=== PATIENT | female | born 1945 | race Hispanic/Latino ===

== ENCOUNTER 2016-11-24 08:44 | Inpatient (IN) | payer MEDICARE, OTHER ==
[2016-11-24] MEDS ORDERED: cefTRIAXone 1 gm 1 GM/100 ML BAG IV STA (10:26)
[2016-11-24] MEDS ORDERED: Azithromycin 500MG/NS 250ml 500 MG/250 ML BAG IVPB STA (10:26)
--- NOTE | 2016-11-24 10:26 | ED PDOC ---
Arrival/HPI - General Chief Complaint: Cough, Cold, Congestion Time Seen by Provider: 11/24/16 10:25 Historian: Patient - History of Present Illness Narrative History of Present Illness (Text): 11/24/16 10:26 A 71 year old female presents to the emergency department complaining of a worsening productive cough with yellow phlegm for 1 week. Patient reports she was seen in urgent care and prescribed clarithromycin. Patient states she started the medication 5 days ago with no relief of symptoms. Patient denies any fever, chills, nausea, vomiting, abdominal pain, urinary symptoms, chest pain, shortness of breath or any other complaints. PMD: Dr. Bailey Time/Duration: 1 week Symptom Course: Unchanged Quality: Other Context: Other Past Medical History - Provider Review Nursing Documentation Reviewed: Yes - Infectious Disease Hx of Infectious Diseases: None - Reproductive Menopause: Yes - Musculoskeletal/Rheumatological Hx Falls: No - Psychiatric Hx Depression: No Hx Emotional Abuse: No Hx Physical Abuse: No Hx Substance Use: No - Anesthesia Hx Anesthesia: Yes - Suicidal Assessment Feels Threatened In Home Enviroment: No Family/Social History - Physician Review Nursing Documentation Reviewed: Yes Family/Social History: No Known Family HX Smoking Status: Never Smoked Hx Alcohol Use: No Hx Substance Use: No Hx Substance Use Treatment: No Allergies/Home Meds Allergies/Adverse Reactions: Allergies Penicillins Allergy (Verified 11/24/16 09:02) RASH Physical Exam - Physical Exam Narrative Physical Exam (Text): - Review of Systems Constitutional: Normal. absent: Fatigue, Weight Change, Fevers Eyes: Normal ENT: Normal Respiratory: (+) Cough, Sputum absent: SOB Cardiovascular: Normal absent: Chest pain, Palpitations, Syncope Gastrointestinal: Normal absent: Abdominal pain, Diarrhea, Nausea, Vomiting Genitourinary: Normal. absent: Dysuria, Frequency, Hematuria Musculoskeletal: Normal. absent: Arthralgias, Back Pain, Neck Pain Skin: Normal Neurological: Normal absent: Focal Weakness Endocrine: Normal Hemo/Lymphatic: Normal Psychiatric: Normal - Physical exam Patient appears age appropriate, speaking full sentences without difficulty - Systems Exam Head: Present: Atraumatic, Normocephalic Pupils: Present: PERRL Extraocular Muscles: Present: EOMI Conjunctiva: Present: Normal Mouth: Present: Moist Mucous Membranes Neck: Present: Normal Range of Motion. No: MIDLINE TENDERNESS, Paraspinal Tenderness Respiratory/Chest: Present: Scattered Rhonchi in left lung field No: Respiratory Distress, Accessory Muscle Use, Tachypneic Cardiovascular: Present: Tachycardia, Normal rhythm, Normal S1, S2, Peripheral Pulses Present. No: Murmurs Abdomen: Present: Normal Bowel Sounds, No: Tenderness, Peritoneal Signs, Rebound, Guarding, Distention Back: Present: Normal Inspection. No: Midline Tenderness, Paraspinal Tenderness Upper Extremity: Present: Normal Inspection. No: Cyanosis, Edema Lower Extremity: Present: Normal Inspection. No: Edema Neurological: Present: GCS=15, Speech Normal, cranial nerves II through XII fully intact with no cerebellar abnormality, neuro-sensory fully intact. No focal neurological deficits. Skin: Present: Warm, Dry, Normal Color. No: Rashes Lymphatic: Present: OX3, NI, NC Psychiatric: Present: Alert, Oriented x 3, Normal Insight, Normal Concentration Vital Signs Reviewed: Yes Vital Signs Temp Pulse Resp BP Pulse Ox 11/24/16 13:50 98.4 F 11/24/16 13:47 104 H 17 132/82 98 11/24/16 13:25 79 18 156/79 H 98 11/24/16 10:45 99.4 F 11/24/16 08:56 99.3 F 102 H 20 162/82 H 96 Temperature: Afebrile Blood Pressure: Hypertensive Pulse: Tachycardic Respiratory Rate: Normal Appearance: Positive for: Well-Appearing, Non-Toxic, Comfortable Pain Distress: None Mental Status: Positive for: Alert and Oriented X 3 Finger Stick Blood Glucose: 141 Medical Decision Making ED Course and Treatment: 11/24/16 10:26 Impression: A 71 year old female with a productive cough with yellow phlegm. Tachycardia and scattered rhonchi in left lung on exam. Differential Diagnosis included but are not limited to: PNA vs. Bronchitis Plan: -- Chest xray -- EKG -- Labs -- Blood culture -- Rocephin and Azithromycin -- Reassess and disposition Progress Notes: EKG shows sinus tachycardia at [address]-segment elevations, normal intervals. Interpreted by me. Report Date : 11/24/2016 11:05:53 Procedure: Chest xray Dictator : Jose Neri MD IMPRESSION: Left lower lobe infiltrate. Likely pneumonia. 11/24/16 11:42 CXR shows no cardiomegaly, no effusion. L. base infiltrate. Interpreted by me. dw Dr. Bailey, accepted to his service for dx of PNA. pt aware of and agrees with plan - Lab Interpretations Microbiology Results: Microbiology Results 11/24/16 10:35 Blood-Venous Blood Culture - Preliminary NO GROWTH AFTER 4 DAYS 11/24/16 10:00 Blood-Venous Blood Culture - Preliminary NO GROWTH AFTER 4 DAYS Lab Results: 11/24/16 10:35 11/24/16 10:35 Lab Results 11/24/16 10:35: Sodium 138, Chloride 97 L, Potassium 3.4 L, Carbon Dioxide 29, Anion Gap 15, BUN 9, Creatinine 0.6, Est GFR ( Amer) > 60, Est GFR (Non- Af Amer) > 60, Random Glucose 251 H, Calcium 9.6, Total Bilirubin 0.9, AST 40 H , ALT 46, Alkaline Phosphatase 96, Total Protein 8.3, Albumin 3.9, Globulin 4.4 , Albumin/Globulin Ratio 0.9 L 11/24/16 10:35: pO2 36, VBG pH 7.41, VBG pCO2 47.0, VBG HCO3 29.8 H, VBG Total CO2 31.2 H, VBG O2 Sat (Calc) 77.4 H, VBG Base Excess 4.3 H, VBG Potassium 3.5 L , Sodium 137.0, Chloride 102.0, Glucose 263 H, Lactate 1.3, FiO2 21.0, Venous Blood Potassium 3.5 L 11/24/16 10:35: PT 11.2, INR 1.04, APTT 33.3 H 11/24/16 10:35: WBC 9.6, RBC 3.93, Hgb 12.4, Hct 36.5, MCV 92.9, MCH 31.6, MCHC 34.0, RDW 12.7, Plt Count 220, MPV 9.2, Gran % 86.1 H, Lymph % (Auto) 6.7 L, Wharton % (Auto) 6.9 H, Eos % (Auto) 0.1 L, Baso % (Auto) 0.2, Gran # 8.27 H, Lymph # 0.6 L, Wharton # 0.7 H, Eos # 0.0, Baso # 0.02 I have reviewed the lab results: Yes - RAD Interpretation Radiology Orders: 11/24/16 10:27 CHEST PORTABLE [RAD] Stat - Medication Orders Current Medication Orders: Discontinued Medications Acetaminophen (Tylenol 325mg Tab) 650 mg PO Q6H PRN PRN Reason: Fever >100.5 F Last Admin: 11/24/16 15:48 Dose: 650 mg Re-Assess: MAR Pain/Vitals Document 11/24/16 16:48 EP (Rec: 11/24/16 19:05 EP [facility]-[id number]) Vitals Temperature (97.6 F-99.6 F) 98 F Temperature Source Oral Albuterol/Ipratropium (Duoneb 3 Mg/0.5 Mg (3 Ml) Ud) 3 ml IH Q4H PRN PRN Reason: Shortness of Breath Last Admin: 11/26/16 21:06 Dose: 3 ml Alprazolam (Xanax) 0.25 mg PO STAT STA PRN Reason: Protocol Stop: 11/26/16 01:01 Last Admin: 11/26/16 01:07 Dose: 0.25 mg Re-Assess: Reassess Psych Meds Document 11/26/16 02:07 BN (Rec: 11/26/16 02:26 [facility] Reassess Psych Med Effective Alprazolam (Xanax) 0.25 mg PO TID PRN; Protocol PRN Reason: Anxiety Stop: 12/03/16 18:01 Azithromycin (Zithromax) 500 mg PO DAILY GIDEON PRN Reason: Protocol Stop: 11/29/16 10:00 Last Admin: 11/27/16 09:50 Dose: 500 mg Ceftriaxone Sodium (Rocephin 1 Gram Ivpb) 1 gm in 100 mls @ 200 mls/hr IV STAT STA PRN Reason: Protocol Stop: 11/24/16 10:55 Last Admin: 11/24/16 10:55 Dose: 200 mls/hr Azithromycin (Zithromax 500mg In Ns) 500 mg in 250 mls @ 167 mls/hr IVPB STAT STA PRN Reason: Protocol Stop: 11/24/16 11:55 Last Admin: 11/24/16 12:04 Dose: 167 mls/hr Ceftriaxone Sodium (Rocephin 1 Gram Ivpb) 1 gm in 100 mls @ 100 mls/hr IVPB DAILY GIDEON PRN Reason: Protocol Stop: 12/04/16 10:01 Last Admin: 11/26/16 10:14 Dose: 100 mls/hr Azithromycin (Zithromax 500mg In Ns) 500 mg in 250 mls @ 167 mls/hr IVPB DAILY GIDEON PRN Reason: Protocol Stop: 12/04/16 10:01 Last Admin: 11/26/16 10:14 Dose: 167 mls/hr Levalbuterol HCl (Xopenex) 0.63 mg IH ONCE STA Stop: 11/26/16 01:03 Last Admin: 11/26/16 04:37 Dose: 0.63 mg Levalbuterol HCl (Xopenex) 0.63 mg IH TIDRESP GIDEON Oseltamivir Phosphate (Tamiflu Cap) 75 mg PO BID GIDEON PRN Reason: Protocol Stop: 11/29/16 23:21 Last Admin: 11/26/16 10:00 Dose: Not Given Non-Admin Reason: Patient Refused Pneumococcal Polyvalent Vaccine (Pneumovax 23 Vaccine) 0.5 ml IM .ONCE ONE Stop: 11/24/16 20:23 Potassium Chloride (K-Dur 20 Meq Er Tab) 40 meq PO ONCE ONE Stop: 11/24/16 15:57 Last Admin: 11/24/16 16:26 Dose: 40 meq Promethazine HCl (Phenergan Syrup) 6.25 mg PO Q4H PRN PRN Reason: Cough Last Admin: 11/27/16 08:02 Dose: 6.25 mg - Scribe Statement The provider has reviewed the documentation as recorded by the Salvatore Pacheco Provider Scribe Attestation: All medical record entries made by the Salvatore were at my direction and personally dictated by me. I have reviewed the chart and agree that the record accurately reflects my personal performance of the history, physical exam, medical decision making, and the department course for this patient. I have also personally directed, reviewed, and agree with the discharge instructions and disposition. Disposition/Present on Arrival - Present on Arrival Any Indicators Present on Arrival: No History of DVT/PE: No History of Uncontrolled Diabetes: No Urinary Catheter: No History of Decub. Ulcer: No History Surgical Site Infection Following: None - Disposition Have Diagnosis and Disposition been Completed?: Yes Diagnosis: Pneumonia Disposition: HOSPITALIZED Disposition Time: 11:43 Patient Plan: Admission Condition: GOOD
[2016-11-24 10:54] LABS: ADD MANUAL DIFF? NO
[2016-11-24 11:00] LABS: VENOUS BLOOD GAS BASE EXCESS 4.3 mmol/L (0.0-2.0); VENOUS BLOOD PH 7.41 (7.32-7.43)
[2016-11-24 11:07] LABS: BASO # 0.02 K/mm3 (0.0-2.0); BASO % 0.2 % (0.0-3.0); EOS % 0.1 % (1.5-5.0); GRAN # 8.27 (1.4-6.5); GRAN % 86.1 % (50.0-68.0); HEMATOCRIT 36.5 % (36.0-48.0); LYMPH # 0.6 (1.2-3.4); LYMPH % 6.7 % (22.0-35.0); MEAN CELL VOLUME 92.9 fL (80.0-105.0); MEAN CORPUSCULAR HEMOGLOBIN 31.6 pg (25.0-35.0); MEAN PLATELET VOLUME 9.2 fl (7.0-11.0); MONO # 0.7 (0.1-0.6); MONO % 6.9 % (1.0-6.0); PLATELET COUNT 220 10^3/uL (120.0-450.0); RED CELL DISTRIBUTION WIDTH 12.7 % (11.5-14.5); WHITE BLOOD COUNT 9.6 10^3/ul (4.5-11.0)
--- NOTE | 2016-11-24 11:07 | RAD ---
HISTORY: cough COMPARISON: No prior. FINDINGS: LUNGS: Ill-defined opacity at left base without silhouetting of left heart border, likely lower lobe. Probable pneumonia. . PLEURA: No significant pleural effusion identified, no pneumothorax apparent. CARDIOVASCULAR: Normal. OSSEOUS STRUCTURES: No significant abnormalities. VISUALIZED UPPER ABDOMEN: Normal. OTHER FINDINGS: None. IMPRESSION: Left lower lobe infiltrate. Likely pneumonia.
[2016-11-24 11:11] LABS: ALB/GLOB RATIO 0.9 (1.1-1.8); ALKALINE PHOSPHATASE 96 U/L (38-133); ALT/SGPT 46 U/L (7-56); AST/SGOT 40 U/L (15-39); BILIRUBIN,TOTAL 0.9 mg/dL (0.2-1.3); BLOOD UREA NITROGEN 9 mg/dL (7-21); CALCIUM 9.6 mg/dL (8.4-10.5); CARBON DIOXIDE 29 mmol/L (21-33); CHLORIDE 97 mmol/L (98-107); GFR AFRICAN-AMERICAN > 60; GLUCOSE,RANDOM 251 mg/dL (70-110); POTASSIUM 3.4 mmol/L (3.6-5.0); SODIUM 138 mmol/L (132-148); TOTAL PROTEIN 8.3 g/dL (5.8-8.3)
[2016-11-24 11:22] LABS: INR 1.04 (0.93-1.08); PARTIAL THROMBOPLASTIN TIME 33.3 Seconds (23.7-30.8)
--- NOTE | 2016-11-24 14:36 | CARD ---
APPROVED REPORT EKG Measurement Heart [id number] <Conclusion> Sinus tachycardia Biatrial enlargement
[2016-11-24] MEDS ORDERED: Potassium Chloride 20 mEq ER Tab PO ONE (15:56)
[2016-11-24 17:49] VITALS: RESP 20
[2016-11-24] MEDS: Promethazine 6.25 MG/5 ML CUP PO PRN (19:01)
[2016-11-24 20:22] VITALS: BMI 19.5
[2016-11-24] MEDS ORDERED: Pneumococcal 23-Valent Vaccine IM ONE (20:22)
[2016-11-25] MEDS: Promethazine 6.25 MG/5 ML CUP PO PRN ×4 (02:46→22:30)
[2016-11-25 06:16] LABS: PH,URINE 6.5 (4.7-8.0); URINE BILIRUBIN NEGATIVE (NEGATIVE); URINE BLOOD TRACE-LYSED (NEGATIVE); URINE GLUCOSE (UA) NEGATIVE (NEGATIVE); URINE KETONE NEGATIVE (NEGATIVE); URINE LEUKOCYTE ESTERASE TRACE Leu/uL (NEGATIVE); URINE PROTEIN NEGATIVE mg/dL (<30 mg/dL); URINE UROBILINOGEN 0.2 E.U./dL (<1 E.U./dL)
[2016-11-25 06:25] LABS: URINE APPEARANCE CLEAR (CLEAR); URINE COLOR LIGHT YELLOW (YELLOW)
[2016-11-25 06:42] LABS: URINE BACTERIA MOD (NEG); URINE EPITHELIAL CELLS 0 - 2 /hpf (0-5)
[2016-11-25 07:20] LABS: ADD MANUAL DIFF? NO
[2016-11-25 07:25] LABS: BASO # 0.03 K/mm3 (0.0-2.0); BASO % 0.3 % (0.0-3.0); EOS # 0.1 (0.0-0.7); EOS % 1.4 % (1.5-5.0); GRAN # 6.71 (1.4-6.5); HEMATOCRIT 35.7 % (36.0-48.0); LYMPH % 11.6 % (22.0-35.0); MEAN CELL VOLUME 92.7 fL (80.0-105.0); MEAN CORPUSCULAR HEMOGLOBIN 31.7 pg (25.0-35.0); MEAN CORPUSCULAR HGB CONC 34.2 g/dl (31.0-37.0); MONO # 0.9 (0.1-0.6); MONO % 9.7 % (1.0-6.0); PLATELET COUNT 241 10^3/uL (120.0-450.0); WHITE BLOOD COUNT 8.7 10^3/ul (4.5-11.0)
[2016-11-25 07:36] LABS: ALKALINE PHOSPHATASE 94 U/L (38-133); ALT/SGPT 51 U/L (7-56); AST/SGOT 42 U/L (15-39); BILIRUBIN,TOTAL 0.7 mg/dL (0.2-1.3); BLOOD UREA NITROGEN 10 mg/dL (7-21); CALCIUM 9.5 mg/dL (8.4-10.5); CARBON DIOXIDE 25 mmol/L (21-33); CHLORIDE 103 mmol/L (95-110); GFR AFRICAN-AMERICAN > 60; GLUCOSE,RANDOM 122 mg/dL (70-110); POTASSIUM 3.9 mmol/L (3.6-5.0); SODIUM 140 mmol/L (132-148); TOTAL PROTEIN 7.4 g/dL (5.8-8.3)
[2016-11-25] MEDS: cefTRIAXone 1 gm 1 GM/100 ML BAG IVPB SCH (09:56)
[2016-11-25] MEDS: Azithromycin 500MG/NS 250ml 500 MG/250 ML BAG IVPB SCH (09:57)
--- NOTE | 2016-11-25 10:41 | HP ---
CHIEF COMPLAINT AND HISTORY OF PRESENT ILLNESS: This is a 71-year-old female who is coming into the hospital with complaints of cough, congestion. She was recently seen by a physician who placed her o n antibiotics. She said that she had not improved. She was taking clarithromycin because she said t hese were the least toxic to her stomach. She had seen me in the office a few days ago and she had j ust started her antibiotics. She says that she was taking 5 days with no relief, so she came in for further evaluation. She denies any fevers or chills. She has no nausea, no vomiting, no dysuria, no frequency. No weakness in the arms or the legs. REVIEW OF SYMPTOMS: All others are within normal limits except as mentioned. ALLERGIES: PENICILLIN. SHE HAS A RASH. HOME MEDICATIONS: Clarithromycin. PAST MEDICAL HISTORY: Osteoarthritis and anxiety. SOCIAL HISTORY: She does not smoke. Denies substance abuse. FAMILY HISTORY: Noncontributory. PHYSICAL EXAMINATION: VITAL SIGNS: T-max is 100.5, pulse of 94, blood pressure is 139/84, respirations 20, O2 saturation 9 8%. GENERAL: The patient lying in bed, flat, and in no apparent distress. HEAD AND NECK EXAM: Atraumatic, normocephalic. Conjunctivae are pink. Throat clear and mouth with moist mucosa. Oropharynx benign. EYES: Extraocular movements are intact. PERRLA. NECK: Supple. No JVD, thyromegaly, or adenopathy. No bruits. HEART: S1 and S2 regular rate and rhythm. No murmurs, rubs, or gallops. LUNGS: Good bilateral air entry. Bilateral rhonchi, no rales. ABDOMEN: Soft, nontender, nondistended. Bowel sounds are positive in all quadrants. No rebound. No hepatosplenomegaly. EXTREMITIES: No cyanosis, clubbing, or edema. NEUROLOGIC: No facial asymmetry, tongue is midline, no uvula deviation. Power is 5/5 in upper extr emity and 5/5 in lower extremity. Sensation is normal in upper extremity and lower extremity. PSYCHIATRIC: Awake, alert, oriented x 3. No anxiety or depression symptoms. Good insight. Petra l affect. GENITOURINARY: No CVA tenderness VASCULAR: 2+ pulses in carotid and pedal pulses. SKIN: No erythema or abnormal nodules noted. SPINE: Normal curvature. LYMPHADENOPATHY: No anterior cervical or posterior cervical adenopathy. No inguinal adenopathy. LABORATORIES: White count of 9.6, hemoglobin 12.4, platelet count is 220. INR is 1.04. ABG, pH is 7.4, pCO2 is 47, PaO2 is 36. Chemistry shows a sodium 138, potassium 3.4, creatinine 0.6. Albumin i s 3.9. Urine shows blood is trace, nitrites are negative, bilirubin is negative. Serology shows inf luenza is negative. Chest x-ray done is a left lower lobe infiltrate. EKG shows sinus tachycardia with a heart rate of 108, QTc is 442. ASSESSMENT: Community-acquired pneumonia, failed outpatient treatment. PLAN: The patient is going to be admitted to the hospital. She is going to be placed on Rocephin. She is going to be placed on azithromycin. I will get Dr. Fontanez to evaluate the patient. The p atient has low potassium and so this will be replaced as well. She is going to be placed on a heart healthy diet. She was given nebulizer treatments in the ER. Currently, she feels a bit better. Yogi Bailey MD cc: [id number] TT: 11/25/2016 10:41:21 en
[2016-11-26] MEDS: Levalbuterol 0.63 MG/3 ML Inhal Soln UD IH STA ×2 (01:51→04:37)
[2016-11-26 08:21] LABS: HEMATOCRIT 34.4 % (36.0-48.0); MEAN CELL VOLUME 93.2 fL (80.0-105.0); MEAN CORPUSCULAR HEMOGLOBIN 31.2 pg (25.0-35.0); MEAN CORPUSCULAR HGB CONC 33.4 g/dl (31.0-37.0); MEAN PLATELET VOLUME 9.1 fl (7.0-11.0); RED CELL DISTRIBUTION WIDTH 12.9 % (11.5-14.5); WHITE BLOOD COUNT 5.8 10^3/ul (4.5-11.0)
--- NOTE | 2016-11-26 08:30 | CON ---
DATE: 11/25/2016 The patient is in room 570, bed 2. CHIEF COMPLAINT: Fever and cough x several days. HISTORY OF PRESENT ILLNESS: This is a 71-year-old female with a history of hypertension, anxiety, hi story of tubal ligation, history of right breast cyst surgery, who IS ALLERGIC TO PENICILLIN, TYPE OF ALLERGY IS NOT CLEAR, who was admitted with pneumonia. Infectious disease consultation requested. The patient did have fevers, shortness of breath and cough. No abdominal pain, diarrhea or constipat ion. No bright red blood per rectum, no melena. PAST MEDICAL HISTORY: Significant for hypertension and anxiety. PAST SURGICAL HISTORY: Includes tubal ligation and right breast cyst. ALLERGIES: THE PATIENT IS ALLERGIC TO PENICILLIN. MEDICATIONS AT HOME: Noted. PHYSICAL EXAMINATION: VITAL SIGNS: The patient is in bed with a temperature of 99.6, T-max is 100.5, heart rate of 92, re spiratory rate of 20 and blood pressure yesterday was 156/86. HEENT: Unremarkable. NECK: Supple. LUNGS: Decreased breath sounds. HEART: Normal S1, S2. ABDOMEN: Soft, nontender. LABORATORY EXAMINATION: Reveals a white count of 8.7, hemoglobin of 12, platelets of 241. BUN of 10 , creatinine 0.5. Procalcitonin 0.22. Urinalysis is noted. Influenza is negative. Microbiology re veals the blood cultures are negative. Sputum cultures are pending. History and physical examinatio n is noted. Chest x-ray reveals a left lower lobe infiltrate. ASSESSMENT AND PLAN: A 71-year-old female with hypertension, anxiety with a temperature of 100.5 and heart rate. 1. Sepsis with a left lower lobe community-acquired pneumonia with a normal procalcitonin and negati ve blood cultures. Currently, we started the patient on ceftriaxone and azithromycin. We will check on the final culture results and the fever curve and we will make further recommendations. Tad Fontanez MD cc: [id number] TT: 11/26/2016 08:29:48 Confirmation # [id number] Dictation # [id number] tn
[2016-11-26 08:31] LABS: ALB/GLOB RATIO 0.9 (1.1-1.8); ALKALINE PHOSPHATASE 75 U/L (38-133); ALT/SGPT 56 U/L (7-56); AST/SGOT 46 U/L (15-39); BILIRUBIN,TOTAL 0.5 mg/dL (0.2-1.3); BLOOD UREA NITROGEN 12 mg/dL (7-21); CALCIUM 9.3 mg/dL (8.4-10.5); CARBON DIOXIDE 30 mmol/L (21-33); CHLORIDE 101 mmol/L (95-110); GFR AFRICAN-AMERICAN > 60; GLUCOSE,RANDOM 117 mg/dL (70-110); POTASSIUM 3.8 mmol/L (3.6-5.0); SODIUM 139 mmol/L (132-148); TOTAL PROTEIN 7.2 g/dL (5.8-8.3)
[2016-11-26] MEDS: Azithromycin 500MG/NS 250ml 500 MG/250 ML BAG IVPB SCH (10:14)
[2016-11-26] MEDS: cefTRIAXone 1 gm 1 GM/100 ML BAG IVPB SCH (10:14)
--- NOTE | 2016-11-26 13:21 | PN ---
DATE: 11/26/2016 SUBJECTIVE: The patient is in bed in no acute distress, nontoxic. The patient appears to be better and her temperature is down. She appears to be more comfortable. PHYSICAL EXAMINATION: VITAL SIGNS: Temperature is 98, blood pressure is 122/60, respiratory rate of 16. HEENT: Unremarkable. NECK: Supple. LUNGS: Decreased breath sounds. HEART: Normal S1, S2. ABDOMEN: Soft, nontender. LABORATORY DATA: Reveals a white count of 5.8, hemoglobin 11, platelets of 258. Chemistries reveal the BUN of 12, creatinine of 0.6. Procalcitonin is 0.22. Urinalysis is noted. Influenza is negativ e. HIV is negative. Microbiology reveals the urine culture is negative. Blood cultures are negativ e. Sputum culture is pending. Review of the orders reveals the patient is on ceftriaxone and azithr omycin and the EKG shows a QTc of 442. ASSESSMENT AND PLAN: This is a 71-year-old female with hypertension, anxiety, history of tubal ligat ion, history of breast cyst surgery, who is ALLERGIC TO PENICILLIN, but tolerated ceftriaxone, now is admitted with sepsis, left lower lobe community-acquired pneumonia, normal procalcitonin, negative u rine culture, negative blood culture, awaiting for sputum culture. We will discontinue the ceftriaxo ne and continue the IV azithromycin for now and we will be able to switch that to p.o. within the nex t 24-48 hours. We will also discontinue the Tamiflu. The patient is refusing to take it anyway. Tad Fontanez MD cc: [id number] TT: 11/26/2016 13:20:14 Confirmation # [id number] Dictation # [id number] cn
[2016-11-26] MEDS: Albuterol-Ipratrop 3 mg / 0.5 (3 ml) UD IH PRN ×2 (15:18→21:06)
[2016-11-27] MEDS: Promethazine 6.25 MG/5 ML CUP PO PRN ×2 (01:55→08:02)
[2016-11-27] MEDS ORDERED: Albuterol-Ipratrop 3 mg / 0.5 (3 ml) UD IH SCH (07:50)
[2016-11-27] MEDS ORDERED: Levalbuterol 0.63 MG/3 ML Inhal Soln UD IH SCH (08:15)
[2016-11-27 08:22] VITALS: BP 139/87; PULSE 90; TEMP 98.4; O2SAT 97
--- NOTE | 2016-11-27 09:53 | PN ---
DATE: 11/27/2016 The patient is in bed in no acute distress, nontoxic. PHYSICAL EXAMINATION: VITAL SIGNS: Temperature is 98. Blood pressure is 130/70, respiratory rate of 16. HEENT: Unremarkable. NECK: Supple. LUNGS: Have decreased breath sounds. HEART: Normal S1, S2. ABDOMEN: Soft, nontender. LABORATORY EXAMINATION: Reveals a white count of 5.8, hemoglobin of 11, platelets of 258. BUN of 12 , creatinine of 0.6. Urinalysis is noted. HIV is negative. Influenza is negative. Microbiology re veals the blood cultures and urine cultures are negative. ASSESSMENT AND PLAN: This is a 71-year-old female with hypertension, anxiety, history of tubal ligat ion, history of breast cyst surgery, IS ALLERGIC TO PENICILLIN, tolerated ceftriaxone, admitted with sepsis with a left lower lobe community-acquired pneumonia with a normal procalcitonin, negative bloo d cultures, urine culture. The patient is doing much better. I will discontinue the ceftriaxone and place the patient on p.o. azithromycin and discontinue the IV azithromycin. The patient should have a repeat chest x-ray in 2-3 weeks to follow resolution and should have pulmonary consultation as out patient. Tad Fontanez MD cc: [id number] TT: 11/27/2016 09:52:25 Confirmation # [id number] Dictation # [id number] tash
--- NOTE | 2016-11-27 11:35 | PN ---
DATE: 11/26/2016 DATE OF EVALUATION: 11/26/2016 HISTORY OF PRESENT ILLNESS: The patient is a 71-year-old female admitted with left lower lobe pneumonia. She was treated with oral antibiotic and did not improve. She was taking clarithromycin. She has history of peptic ulcer disease and cannot tolerate oral antibiotics. She also is complaining of wheezing, getting nebulizer treatment. Denies any weakness, able to ambulate without any difficulty. Still complaining of cough. No expectorant. On admission, she was found to be anemic. White count differential shows neutrophilia and lymphopenia. She also had mild coagulopathy on admission with elevated PTT of 33. She also had hypokalemia with low potassium of 3.4, which is improved now. ALLERGIES: PENICILLIN CAUSES RASH. HOME MEDICATIONS: Clarithromycin. PAST MEDICAL HISTORY: Osteoarthritis, anxiety. PAST SURGICAL HISTORY: None. PERSONAL HISTORY: Nonsmoker. No history of substance abuse. FAMILY HISTORY: Noncontributory. Positive history in mother and father. REVIEW OF SYSTEMS: As per HPI. In addition, complaining of anxiety, asking for Xanax. The rest of 12-point review of systems reviewed and negative. PHYSICAL EXAMINATION: GENERAL: Comfortable in bed, in no acute distress. VITAL SIGNS: Temperature 98.7. Heart rate is 80 per minute, blood pressure 130 /90, respiratory rate 18 per minute, oxygen saturation, no apparent distress. HEENT: Pallor positive. NECK: No lymphadenopathy. The rest of HEENT normal. HEART: S1, S2 normal. No murmur, no gallop. ABDOMEN: Soft, nontender. No hepatosplenomegaly. No rebound tenderness. LUNGS: Breath sounds decreased in left base. bronchial breathing present on the left side. Crepitations present in the left base. EXTREMITIES: No cyanosis, no clubbing, no edema. NEUROLOGIC: Alert, oriented x 3. No focal sensory or motor deficit. VASCULAR: 2+ pulsations present. SKIN: Normal. SPINE: Curvature normal. LYMPHS: Lymphadenopathy none. CENTRAL NERVOUS SYSTEM: Alert and oriented x 3. No focal sensory or motor deficit. LABORATORY DATA: White count 5.8, hemoglobin 11.5, hematocrit 34.4, granulocytes 77%, lymphocytes 11%, monocytes 9%. Coags - PT 11.2, INR 1.04, and PTT 33.3. Sodium 139, potassium 3.8, glucose 117, AST 46, ALT 56. ASSESSMENT: 1. Left lower lobe pneumonia. 2. Osteoarthritis. 3. Anemia. 4. Granulocytosis, lymphopenia. 5. Mild coagulopathy. 6. Hypokalemia. PLAN: She is getting Zithromax and IV ceftrioxone. ID , Dr. Moura following. She is getting nebulizer treatment 0.63 inhalation, 0.25 mg t.i.d., Phenergan q. 4 hours p.r.n., Tylenol 650 q. 6 hours p.r.n. Xanax 0.25 mg p.o. t.i.d. added for anxiety. Hypokalemia, resolved. She has mild anemia, which needs workup, and granulocytosis is likely related to infection. Coagulopathy, mild - repeat coags. [facility]ire [facility] on [facility] reviewed. Discharge planning, if stable discharge tomorrow. Bindu Alexander MD cc: [id number] TT: 11/27/2016 11:34:43 Confirmation # [id number] Dictation # [id number] [id number]
--- NOTE | 2016-11-27 20:11 | CP.PCM.DIS ---
Provider - Provider Date of Admission: 11/24/16 11:52 Attending physician: Yogi Bailey MD Primary care physician: Wiliam Barker MD Time Spent in preparation of Discharge (in minutes): 55 Hospital Course - Lab Results Lab Results: Micro Results 11/25/16 05:45 Sputum Gram Stain - Final 11/25/16 05:45 Sputum Sputum Culture - Final NORMAL SAPROPHYTIC MIKE 11/25/16 05:45 Urine Urine Culture - Final No Growth (<1,000 CFU/ML) Most Recent Lab Values WBC 5.8 10^3/ul (4.5-11.0) D 11/26/16 08:11 RBC 3.69 10^6/uL (3.5-6.1) 11/26/16 08:11 Hgb 11.5 gm/dL (12.0-16.0) L 11/26/16 08:11 Hct 34.4 % (36.0-48.0) L 11/26/16 08:11 MCV 93.2 fL (80.0-105.0) 11/26/16 08:11 MCH 31.2 pg (25.0-35.0) 11/26/16 08:11 MCHC 33.4 g/dl (31.0-37.0) 11/26/16 08:11 RDW 12.9 % (11.5-14.5) 11/26/16 08:11 Plt Count 258 10^3/uL (120.0-450.0) 11/26/16 08:11 MPV 9.1 fl (7.0-11.0) 11/26/16 08:11 Gran % 77.0 % (50.0-68.0) H 11/25/16 07:00 Lymph % (Auto) 11.6 % (22.0-35.0) L 11/25/16 07:00 [place] % (Auto) 9.7 % (1.0-6.0) H 11/25/16 07:00 Eos % (Auto) 1.4 % (1.5-5.0) L 11/25/16 07:00 Baso % (Auto) 0.3 % (0.0-3.0) 11/25/16 07:00 Gran # 6.71 (1.4-6.5) H 11/25/16 07:00 Lymph # 1.0 (1.2-3.4) L 11/25/16 07:00 [place] # 0.9 (0.1-0.6) H 11/25/16 07:00 Eos # 0.1 (0.0-0.7) 11/25/16 07:00 Baso # 0.03 K/mm3 (0.0-2.0) 11/25/16 07:00 PT 11.2 Seconds (9.9-11.8) 11/24/16 10:35 INR 1.04 (0.93-1.08) 11/24/16 10:35 APTT 33.3 Seconds (23.7-30.8) H 11/24/16 10:35 pO2 36 mm/Hg (30-55) 11/24/16 10:35 VBG pH 7.41 (7.32-7.43) 11/24/16 10:35 VBG pCO2 47.0 (40-60) 11/24/16 10:35 VBG HCO3 29.8 mmol/l (21-28) H 11/24/16 10:35 VBG Total CO2 31.2 mmol.L (22-28) H 11/24/16 10:35 VBG O2 Sat (Calc) 77.4 % (40-65) H 11/24/16 10:35 VBG Base Excess 4.3 mmol/L (0.0-2.0) H 11/24/16 10:35 VBG Potassium 3.5 mmol/L (3.6-5.2) L 11/24/16 10:35 Sodium 137.0 mmol/L (132-148) 11/24/16 10:35 Chloride 102.0 mmol/L (98-107) 11/24/16 10:35 Glucose 263 mg/dl (65-105) H 11/24/16 10:35 Lactate 1.3 mmol/L (0.7-2.1) 11/24/16 10:35 FiO2 21.0 % 11/24/16 10:35 Sodium 139 mmol/L (132-148) 11/26/16 08:11 Potassium 3.8 mmol/L (3.6-5.0) 11/26/16 08:11 Chloride 101 mmol/L (95-110) 11/26/16 08:11 Carbon Dioxide 30 mmol/L (21-33) 11/26/16 08:11 Anion Gap 12 (10-20) 11/26/16 08:11 BUN 12 mg/dL (7-21) 11/26/16 08:11 Creatinine 0.6 mg/dL (0.5-1.4) 11/26/16 08:11 Est GFR ( Amer) > 60 11/26/16 08:11 Est GFR (Non-Af Amer) > 60 11/26/16 08:11 Random Glucose 117 mg/dL (70-110) H 11/26/16 08:11 Calcium 9.3 mg/dL (8.4-10.5) 11/26/16 08:11 Total Bilirubin 0.5 mg/dL (0.2-1.3) 11/26/16 08:11 AST 46 U/L (15-39) H 11/26/16 08:11 ALT 56 U/L (7-56) 11/26/16 08:11 Alkaline Phosphatase 75 U/L (38-133) 11/26/16 08:11 Total Protein 7.2 g/dL (5.8-8.3) 11/26/16 08:11 Albumin 3.4 g/dL (3.0-4.8) 11/26/16 08:11 Globulin 3.8 gm/dL 11/26/16 08:11 Albumin/Globulin Ratio 0.9 (1.1-1.8) L 11/26/16 08:11 Procalcitonin 0.22 NG/ML (0.19-0.49) 11/25/16 07:00 Venous Blood Potassium 3.5 mmol/L (3.6-5.2) L 11/24/16 10:35 Urine Color Light yellow (YELLOW) 11/25/16 05:45 Urine Appearance Clear (CLEAR) 11/25/16 05:45 Urine pH 6.5 (4.7-8.0) 11/25/16 05:45 Ur Specific [place] 1.010 (1.005-1.035) 11/25/16 05:45 Urine Protein Negative mg/dL (<30 mg/dL) 11/25/16 05:45 Urine Glucose (UA) Negative mg/dL (NEGATIVE) 11/25/16 05:45 Urine Ketones Negative mg/dL (NEGATIVE) 11/25/16 05:45 Urine Blood Trace-lysed (NEGATIVE) H 11/25/16 05:45 Urine Nitrate Negative (NEGATIVE) 11/25/16 05:45 Urine Bilirubin Negative (NEGATIVE) 11/25/16 05:45 Urine Urobilinogen 0.2 E.U./dL (<1 E.U./dL) 11/25/16 05:45 Ur Leukocyte Esterase [place]/uL (NEGATIVE) H 11/25/16 05:45 Urine RBC 1 - 3 /hpf (0-2) 11/25/16 05:45 Urine WBC 1 - 3 /hpf (0-6) 11/25/16 05:45 Ur Epithelial Cells 0 - 2 /hpf (0-5) 11/25/16 05:45 Urine Bacteria Mod (NEG) 11/25/16 05:45 HIV 1&2 Ag/Ab, 4th Gen Nonreactive (Nonreactive) 11/25/16 07:00 Influenza Typ A,B (EIA) Negative for flu a/b (NEGATIVE) 11/25/16 04:30 - Hospital Course Hospital Course: DATE OF EVALUATION: 11/27/2016 1. Left lower lobe pneumonia. 2. Osteoarthritis. 3. Anemia. 4. Granulocytosis, lymphopenia. 5. Mild coagulopathy. 6. Hypokalemia. Hospital course: The patient is a 71-year-old female admitted with left lower lobe pneumonia. She was treated with IV ceftrioxone and zithromax. Bronchodilators. She has history of peptic ulcer disease. On admission, she was found to be anemic. White count differential shows neutrophilia and lymphopenia. She also had mild coagulopathy on admission with elevated PTT of 33. She also had hypokalemia with low potassium of 3.4,, resolved with PO KDur. ALLERGIES: PENICILLIN CAUSES RASH. HOME MEDICATIONS: Clarithromycin. PAST MEDICAL HISTORY: Osteoarthritis, anxiety. PAST SURGICAL HISTORY: None. PERSONAL HISTORY: Nonsmoker. No history of substance abuse. FAMILY HISTORY: Noncontributory. Positive history in mother and father. REVIEW OF SYSTEMS: As per HPI. In addition, complaining of anxiety, asking for Xanax. The rest of 12-point review of systems reviewed and negative. PHYSICAL EXAMINATION: GENERAL: Comfortable in bed, in no acute distress. VITAL SIGNS: Temperature 98.6. Heart rate is 87 per minute, blood pressure 136 /90, respiratory rate 18 per minute, oxygen saturation, no apparent distress. HEENT: Pallor positive. NECK: No lymphadenopathy. The rest of HEENT normal. HEART: S1, S2 normal. No murmur, no gallop. ABDOMEN: Soft, nontender. No hepatosplenomegaly. No rebound tenderness. LUNGS: Breath sounds decreased in left base. bronchial breathing present on the left side. Crepitations present in the left base. EXTREMITIES: No cyanosis, no clubbing, no edema. NEUROLOGIC: Alert, oriented x 3. No focal sensory or motor deficit. VASCULAR: 2+ pulsations present. SKIN: Normal. SPINE: Curvature normal. LYMPHS: Lymphadenopathy none. CENTRAL NERVOUS SYSTEM: Alert and oriented x 3. No focal sensory or motor deficit. LABORATORY DATA: White count 5.8, hemoglobin 11.5, hematocrit 34.4, granulocytes 77%, lymphocytes 11%, monocytes 9%. Coags - PT 11.2, INR 1.04, and PTT 33.3. Sodium 139, potassium 3.8, glucose 117, AST 46, AL DISCHARGE MEDS: Zithromax 500 mg daily for 5 days, Xopenex INH prn, prescriptions given. Condition on discharge : Good. Dispo : discharge home.. Discharge Plan - Discharge Medications Prescriptions: Azithromycin [Zithromax] 500 mg PO DAILY #5 tablet Levalbuterol Tartrate [Xopenex Hfa] 0.045 mg IH Q6H PRN #30 ml PRN Reason: Shortness Of Breath Mometasone Furoate [Nasonex] 0.05 mg NS DAILY #30 ml - Follow Up Plan Condition: GOOD Disposition: HOME/ ROUTINE Instructions: Pneumococcal Vaccine for Adults (DC), Heart Healthy Diet (DC), Sepsis (GEN), Pneumonia (DC) Referrals: Yogi Bailey MD [Staff Provider] -
== END 2016-11-27 13:13 | disposition home or self-care (01) | DRG 871 ==
LOC: ED 08:44 → ERH 11:52 → 5RSO 13:59
PROVIDERS: ADMIT Internal Medicine Nephrology; ATTEND Internal Medicine Nephrology
DX: A41.9 Sepsis, unspecified organism (principal); J18.9 Pneumonia, unspecified organism; D64.9 Anemia, unspecified; D68.9 Coagulation defect, unspecified; I10 Essential (primary) hypertension; M19.90 Unspecified osteoarthritis, unspecified site; D72.810 Lymphocytopenia; E87.6 Hypokalemia; F41.9 Anxiety disorder, unspecified; Z88.0 Allergy status to penicillin; Z98.51 Tubal ligation status

== ENCOUNTER 2017-01-09 02:15 | Emergency (ER) | payer MEDICARE, OTHER ==
[2017-01-09 02:15] VITALS: BMI 19.5
[2017-01-09 02:41] VITALS: BP 152/82; PULSE 86; RESP 18; TEMP 98.2; O2SAT 99
--- NOTE | 2017-01-09 02:58 | ED PDOC ---
Arrival/HPI - General Chief Complaint: Dizziness/Lightheaded Time Seen by Provider: 01/09/17 02:32 Historian: Patient - History of Present Illness Narrative History of Present Illness (Text): 01/09/17 02:54 Silvia Saenz is a 71 year old female, whose past medical history includes hypertension, anxiety, and osteoarthritis, who presents to the Emergency department accompanied by daughter complaining of dizziness. Patient states 1 week ago she turned her head too quickly and began feeling near-syncopal and dizzy. Patient states since then dizziness has persisted with associated neck pain/muscle spams. Patient notes she has also been experiencing anxiety and took 1 Xanax 1 hour prior to arrival. Patient denies any fever, chills, chest pain, shortness of breath, nausea, vomiting, diarrhea, urinary symptoms, back pain, headache, or any other complaints. PMD: Dr. Bailey Time/Duration: 1 week Symptom Onset: Gradual Symptom Course: Unchanged Quality: Other (Spasms) Activities at Onset: Light Context: Home Past Medical History - Provider Review Nursing Documentation Reviewed: Yes - Infectious Disease Hx of Infectious Diseases: None - Integumentary Hx Dermatological Disorder: Yes (eyeglasses) - Musculoskeletal/Rheumatological Hx Falls: No - Gastrointestinal Other/Comment: "weak stomach" pt stated has to be carreful what she eats - Psychiatric Hx Depression: No Hx Emotional Abuse: No Hx Physical Abuse: No Hx Substance Use: No - Anesthesia Hx Anesthesia: Yes - Suicidal Assessment Feels Threatened In Home Enviroment: No Family/Social History - Physician Review Nursing Documentation Reviewed: Yes Family/Social History: Unknown Family HX Smoking Status: Never Smoked Hx Alcohol Use: No Hx Substance Use: No Hx Substance Use Treatment: No Allergies/Home Meds Allergies/Adverse Reactions: Allergies Penicillins Allergy (Verified 11/24/16 09:02) RASH Home Medications: Home Meds Medication Instructions Recorded Confirmed ALPRAZolam [Xanax] 0.25 mg PO TID 01/09/17 01/09/17 Review of Systems - Physician Review All systems were reviewed & negative as marked: Yes - Review of Systems Constitutional: Normal. absent: Fevers Eyes: Normal ENT: Normal Respiratory: Normal. absent: SOB, Cough Cardiovascular: Other (+near-syncope). absent: Chest Pain Gastrointestinal: Normal Genitourinary Female: Normal Musculoskeletal: Neck Pain. absent: Back Pain Skin: Normal Neurological: Dizziness Endocrine: Normal Hemo/Lymphatic: Normal Psychiatric: Normal Physical Exam Vital Signs Reviewed: Yes Vital Signs Temp Pulse Resp BP Pulse Ox 01/09/17 02:36 98.2 F 86 18 152/82 H 99 Temperature: Afebrile Blood Pressure: Normal Pulse: Regular Respiratory Rate: Normal Appearance: Positive for: Well-Appearing, Non-Toxic, Comfortable Pain Distress: None Mental Status: Positive for: Alert and Oriented X 3 - Systems Exam Head: Present: Atraumatic, Normocephalic Pupils: Present: PERRL Extroacular Muscles: Present: EOMI Conjunctiva: Present: Normal Mouth: Present: Moist Mucous Membranes Neck: Present: Normal Range of Motion Respiratory/Chest: Present: Clear to Auscultation, Good Air Exchange. No: Respiratory Distress, Accessory Muscle Use Cardiovascular: Present: Regular Rate and Rhythm, Normal S1, S2. No: Murmurs Abdomen: Present: Normal Bowel Sounds. No: Tenderness, Distention, Peritoneal Signs Back: Present: Normal Inspection Upper Extremity: Present: Normal Inspection. No: Cyanosis, Edema Lower Extremity: Present: Normal Inspection. No: Edema Neurological: Present: GCS=15, CN II-XII Intact, Speech Normal, Motor Func Grossly Intact, Normal Sensory Function, Normal Cerebellar Funct, Memory Normal Skin: Present: Warm, Dry, Normal Color. No: Rashes Psychiatric: Present: Alert, Oriented x 3, Normal Insight, Normal Concentration Medical Decision Making ED Course and Treatment: 01/09/17 02:54 Impression: 71 year old female complaining of dizziness, neck pain, and near-syncope. Differential Diagnosis include but are not limited to: near-syncope vs. cervical strain Plan: -- CT Cervical Spine w/o contrast -- CT Head w/o contrast -- EKG -- Chest X-ray -- Labs, troponin -- UA -- Reassess and disposition Prior Visits: Notes and results from previous visits were reviewed. Progress Notes: Reviewed EKG, NSR at [address]-segment elevations or depressions, no T-wave inversions, normal intervals. 01/09/17 04:26 Reviewed radiology, Chest X-Ray shows no acute findings. 01/09/17 04:40 CT Head Without Intravenous Contrast FINDINGS: Brain: Unremarkable. No hemorrhage. No significant white matter disease. No edema. Ventricles: Unremarkable. No ventriculomegaly. Bones/joints: Unremarkable. No acute fracture. Soft tissues: Unremarkable. Sinuses: Unremarkable as visualized. No acute sinusitis. Mastoid air cells: Unremarkable as visualized. No mastoid effusion. IMPRESSION: Normal head/brain CT. 01/09/17 04:43 CT Cervical Spine Without Intravenous Contrast CLINICAL HISTORY: 71 years old, female; Signs and symptoms; Other: Dizziness; Additional info: Dizzy FINDINGS: Vertebrae: Unremarkable. No acute fracture. Discs/spinal canal/neural foramina: No acute findings. No spinal canal stenosis. Soft tissues: Unremarkable. Lung apices: Unremarkable as visualized. IMPRESSION: Normal cervical spine CT. 01/09/17 05:15 On re-evaluation, the patient feels better and is in no acute distress. I have discussed the results and plan with the patient, who expresses understanding. Patient in agreement with plan to discharged home. Patient is stable for discharge. Patient was instructed to follow up with physician/clinic in 1-2 days or return if symptoms worsen or new concerning symptoms arise. - Lab Interpretations Lab Results: 01/09/17 03:27 01/09/17 03:27 Lab Results 01/09/17 03:27: Sodium 140, Potassium 3.6, Chloride 104, Carbon Dioxide 26, Anion Gap 14, BUN 14, Creatinine 0.6, Est GFR ( Amer) > 60, Est GFR (Non- Af Amer) > 60, Random Glucose 127 H, Calcium 9.5, Total Bilirubin 1.0, AST 36, ALT 45, Alkaline Phosphatase 83, Troponin I < 0.01, Total Protein 7.8, Albumin 4.3, Globulin 3.5, Albumin/Globulin Ratio 1.2 01/09/17 03:27: WBC 5.3, RBC 4.13, Hgb 13.4, Hct 38.9, MCV 94.2, MCH 32.4, MCHC 34.4, RDW 13.4, Plt Count 147, MPV 9.5, Gran % 70.8 H, Lymph % (Auto) 19.6 L, [place] % (Auto) 7.9 H, Eos % (Auto) 1.1 L, Baso % (Auto) 0.6, Gran # 3.75, Lymph # 1.0 L, [place] # 0.4, Eos # 0.1, Baso # 0.03 I have reviewed the lab results: Yes - RAD Interpretation Radiology Orders: 01/09/17 03:07 HEAD W/O CONTRAST [CT] Stat 01/09/17 03:08 CERVICAL SPINE W/O CONTRAST [CT] Stat CHEST ONE VIEW [RAD] Stat - EKG Interpretation Interpreted by ED Physician: Yes Type: 12 lead EKG - Scribe Statement The provider has reviewed the documentation as recorded by the Scribcristiano De La Cruz All medical record entries made by the Anilaibcristiano were at my direction and personally dictated by me. I have reviewed the chart and agree that the record accurately reflects my personal performance of the history, physical exam, medical decision making, and the department course for this patient. I have also personally directed, reviewed, and agree with the discharge instructions and disposition. Disposition/Present on Arrival - Present on Arrival Any Indicators Present on Arrival: No History of DVT/PE: No History of Uncontrolled Diabetes: No Urinary Catheter: No History of Decub. Ulcer: No History Surgical Site Infection Following: None - Disposition Have Diagnosis and Disposition been Completed?: Yes Diagnosis: Dizziness Disposition: HOME/ ROUTINE Disposition Time: 05:15 Condition: GOOD Discharge Instructions (ExitCare): Dizziness (ED)
[2017-01-09 03:38] LABS: ADD MANUAL DIFF? NO
[2017-01-09 03:44] LABS: BASO # 0.03 K/mm3 (0.0-2.0); BASO % 0.6 % (0.0-3.0); EOS # 0.1 (0.0-0.7); EOS % 1.1 % (1.5-5.0); GRAN # 3.75 (1.4-6.5); GRAN % 70.8 % (50.0-68.0); HEMATOCRIT 38.9 % (36.0-48.0); LYMPH % 19.6 % (22.0-35.0); MEAN CELL VOLUME 94.2 fL (80.0-105.0); MEAN CORPUSCULAR HEMOGLOBIN 32.4 pg (25.0-35.0); MEAN CORPUSCULAR HGB CONC 34.4 g/dl (31.0-37.0); MEAN PLATELET VOLUME 9.5 fl (7.0-11.0); MONO # 0.4 (0.1-0.6); MONO % 7.9 % (1.0-6.0); PLATELET COUNT 147 10^3/uL (120.0-450.0); RED CELL DISTRIBUTION WIDTH 13.4 % (11.5-14.5); WHITE BLOOD COUNT 5.3 10^3/ul (4.5-11.0)
[2017-01-09 03:52] LABS: ALB/GLOB RATIO 1.2 (1.1-1.8); ALKALINE PHOSPHATASE 83 U/L (38-133); ALT/SGPT 45 U/L (7-56); AST/SGOT 36 U/L (15-39); BLOOD UREA NITROGEN 14 mg/dL (7-21); CALCIUM 9.5 mg/dL (8.4-10.5); CARBON DIOXIDE 26 mmol/L (21-33); CHLORIDE 104 mmol/L (98-107); GFR AFRICAN-AMERICAN > 60; GLUCOSE,RANDOM 127 mg/dL (70-110); POTASSIUM 3.6 mmol/L (3.6-5.0); SODIUM 140 mmol/L (132-148); TOTAL PROTEIN 7.8 g/dL (5.8-8.3)
[2017-01-09 04:18] LABS: TROPONIN I < 0.01 ng/mL
--- NOTE | 2017-01-09 04:30 | CT ---
EXAM: CT Cervical Spine Without Intravenous Contrast CLINICAL HISTORY: 71 years old, female; Signs and symptoms; Other: Dizziness; Additional info: Dizzy TECHNIQUE: Axial computed tomography images of the cervical spine without intravenous contrast. This CT exam was performed using one or more of the following dose reduction techniques: automated exposure control, adjustment of the mA and/or kV according to patient size, and/or use of iterative reconstruction technique. Coronal and sagittal reformatted images were created and reviewed. COMPARISON: No relevant prior studies available. FINDINGS: Vertebrae: Unremarkable. No acute fracture. Discs/spinal canal/neural foramina: No acute findings. No spinal canal stenosis. Soft tissues: Unremarkable. Lung apices: Unremarkable as visualized. IMPRESSION: Normal cervical spine CT.
--- NOTE | 2017-01-09 04:31 | CT ---
EXAM: CT Head Without Intravenous Contrast CLINICAL HISTORY: 71 years old, female; Signs and symptoms; Dizziness; Additional info: Dizzy TECHNIQUE: Axial computed tomography images of the head/brain without intravenous contrast. This CT exam was performed using one or more of the following dose reduction techniques: automated exposure control, adjustment of the mA and/or kV according to patient size, and/or use of iterative reconstruction technique. COMPARISON: No relevant prior studies available. FINDINGS: Brain: Unremarkable. No hemorrhage. No significant white matter disease. No edema. Ventricles: Unremarkable. No ventriculomegaly. Bones/joints: Unremarkable. No acute fracture. Soft tissues: Unremarkable. Sinuses: Unremarkable as visualized. No acute sinusitis. Mastoid air cells: Unremarkable as visualized. No mastoid effusion. IMPRESSION: Normal head/brain CT.
--- NOTE | 2017-01-09 09:24 | RAD ---
PROCEDURE: CHEST RADIOGRAPH, 1 VIEW HISTORY: pain COMPARISON: 11/24/2016 FINDINGS: LUNGS: Clear. PLEURA: No pneumothorax or pleural fluid seen. CARDIOVASCULAR: Normal. OSSEOUS STRUCTURES: No significant abnormalities. VISUALIZED UPPER ABDOMEN: Normal. OTHER FINDINGS: None. IMPRESSION: No active disease.
--- NOTE | 2017-01-09 16:52 | CARD ---
APPROVED REPORT EKG Measurement Heart [id number] <Conclusion> Normal sinus rhythm Possible Left atrial enlargement Borderline ECG
== END 2017-01-09 05:30 | disposition home or self-care (01) ==
LOC: ED 02:15
DX: R42 Dizziness and giddiness (principal)

== ENCOUNTER 2017-01-27 04:07 | Emergency (ER) | payer MEDICARE, OTHER ==
[2017-01-27 04:07] VITALS: BMI 19.5
[2017-01-27 04:14] VITALS: TEMP 98.1
--- NOTE | 2017-01-27 04:34 | ED PDOC ---
Arrival/HPI - General Chief Complaint: Anxiety Time Seen by Provider: 01/27/17 04:32 Historian: Patient, Family - History of Present Illness Narrative History of Present Illness (Text): 01/27/17 04:32 Silvia Saenz is a 71 year old female, whose past medical history includes hypertension and anxiety, who presents to the Emergency department accompanied by son complaining of a panic attack after she received bad news from a friend earlier in the evening. Patient states symptoms are consistent to previous episodes of anxiety and notes she had Xanax 0.25 mg at home with minimal relief. Patient is scheduled to see a psychiatrist in 1 week. Patient denies any suicidal ideation, homicidal ideation, chest pain, shortness of breath, nausea, vomiting, neck pain, headache, dizziness, or any other complaints. PMD: Dr. Bailey Time/Duration: Other (tonight) Symptom Onset: Gradual Symptom Course: Improving Activities at Onset: Light Context: Home Past Medical History - Provider Review Nursing Documentation Reviewed: Yes - Infectious Disease Hx of Infectious Diseases: None - Reproductive Menopause: Yes - Cardiac Hx Cardiac Disorders: No - Pulmonary Hx Respiratory Disorders: No - Neurological Hx Neurological Disorder: No - HEENT Hx Glaucoma: Yes - Renal Hx Renal Disorder: No - Endocrine/Metabolic Hx Endocrine Disorders: No - Hematological/Oncological Hx Blood Disorders: No - Integumentary Hx Dermatological Disorder: No (eyeglasses) - Musculoskeletal/Rheumatological Hx Musculoskeletal Disorders: No Hx Falls: No - Gastrointestinal Hx Gastrointestinal Disorders: No Other/Comment: "weak stomach" pt stated has to be carreful what she eats - Genitourinary/Gynecological Hx Genitourinary Disorders: No - Psychiatric Hx Anxiety: Yes Hx Depression: No Hx Emotional Abuse: No Hx Physical Abuse: No Hx Substance Use: No - Surgical History Other/Comment: breast cyst/tubal ligation - Anesthesia Hx Anesthesia: Yes - Suicidal Assessment Feels Threatened In Home Enviroment: No Family/Social History - Physician Review Nursing Documentation Reviewed: Yes Family/Social History: Unknown Family HX Smoking Status: Never Smoked Hx Alcohol Use: No Hx Substance Use: No Hx Substance Use Treatment: No Allergies/Home Meds Allergies/Adverse Reactions: Allergies Penicillins Allergy (Verified 01/27/17 04:15) RASH Home Medications: Home Meds Medication Instructions Recorded Confirmed ALPRAZolam [Xanax] 0.25 mg PO TID 01/09/17 01/27/17 Bimatoprost [Lumigan] 1 drop EACHEYE DAILY 01/27/17 01/27/17 Review of Systems - Physician Review All systems were reviewed & negative as marked: Yes Physical Exam - Physical Exam Narrative Physical Exam (Text): - Review of Systems Constitutional: Normal. absent: Fatigue, Weight Change, Fevers Eyes: Normal ENT: Normal Respiratory: Normal absent: SOB, Cough, Sputum Cardiovascular: Normal absent: Chest pain, Palpitations, Syncope Gastrointestinal: Normal absent: Abdominal pain, Diarrhea, Nausea, Vomiting Genitourinary: Normal. absent: Dysuria, Frequency, Hematuria Musculoskeletal: Normal. absent: Arthralgias, Back Pain, Neck Pain Skin: Normal Neurological: Normal absent: Focal Weakness Endocrine: Normal Hemo/Lymphatic: Normal Psychiatric: +anxiety. absent: suicidal ideation, homicidal ideation - Physical exam Patient appears age appropriate, speaking full sentences without difficulty - Systems Exam Head: Present: Atraumatic, Normocephalic Pupils: Present: PERRL Extraocular Muscles: Present: EOMI Conjunctiva: Present: Normal Mouth: Present: Moist Mucous Membranes Neck: Present: Normal Range of Motion. No: MIDLINE TENDERNESS, Paraspinal Tenderness Respiratory/Chest: Present: Clear to Auscultation, Good Air Exchange. No: Respiratory Distress, Accessory Muscle Use, Tachypnic Cardiovascular: Present: Regular Rate and Rhythm, Normal S1, S2, Peripheral Pulses Present. No: Murmurs Abdomen: Present: Normal Bowel Sounds, No: Tenderness, Peritoneal Signs, Rebound, Guarding, Distention Back: Present: Normal Inspection. No: Midline Tenderness, Paraspinal Tenderness Upper Extremity: Present: Normal Inspection. No: Cyanosis, Edema Lower Extremity: Present: Normal Inspection. No: Edema Neurological: Present: GCS=15, Speech Normal, cranial nerves II through XII fully intact with no cerebellar abnormality, neuro-sensory fully intact. No focal neurological deficits. Skin: Present: Warm, Dry, Normal Color. No: Rashes Lymphatic: Present: OX3, NI, NC Psychiatric: Present: Alert, Oriented x 3, Normal Insight, Normal Concentration Vital Signs Reviewed: Yes Vital Signs Temp Pulse Resp BP Pulse Ox 01/27/17 05:20 79 18 123/95 H 96 01/27/17 04:11 98.1 F 95 H 17 170/71 H 98 Temperature: Afebrile Blood Pressure: Hypertensive Pulse: Regular Respiratory Rate: Normal Appearance: Positive for: Well-Appearing, Non-Toxic, Comfortable Pain Distress: None Mental Status: Positive for: Alert and Oriented X 3 Medical Decision Making ED Course and Treatment: 01/27/17 04:32 Impression: 71 year old female complaining of a panic attack today. Pt states she has a hx of panic attacks and this feels identical to her usual panic attack symptoms. No acute findings on physical exam. Pt denies chest pain, SOB/MURILLO, f/c, cough. Differential Diagnosis included but are not limited to: anxiety Plan: -- Xanax -- Reassess and disposition Prior Visits: Notes and results from previous visits were reviewed. On 01/09/2017, pt was seen in the Emergency department for dizziness, neck discomfort, and anxiety. Pt was d/c home. Progress Notes: 01/27/17 05:38 pt in no distress, states her symptoms resolved and she feels better states she feels comfortable being dc'd home with outpatient f/u pt states she has an appt with a psychiatrist this upcoming states she has a PMD with whom she can f/u as well Pt states she understands to return to the ER right away for new or worsening symptoms or for inability to f/u with PMD or specialist as instructed. Patient states that she fully agrees with and understands discharge instructions. States that she agrees with the plan and disposition. Verbalized and repeated discharge instructions and plan. I have given the patient opportunity to ask any additional questions. 01/27/17 05:42 - Medication Orders Current Medication Orders: Discontinued Medications Alprazolam (Xanax) 0.5 mg PO STAT STA PRN Reason: Protocol Stop: 01/27/17 04:35 Last Admin: 01/27/17 04:46 Dose: 0.5 mg - Scribe Statement The provider has reviewed the documentation as recorded by the Salvatore De La Cruz Provider Scribe Attestation: All medical record entries made by the Scribe were at my direction and personally dictated by me. I have reviewed the chart and agree that the record accurately reflects my personal performance of the history, physical exam, medical decision making, and the department course for this patient. I have also personally directed, reviewed, and agree with the discharge instructions and disposition. Disposition/Present on Arrival - Present on Arrival Any Indicators Present on Arrival: No History of DVT/PE: No History of Uncontrolled Diabetes: No Urinary Catheter: No History of Decub. Ulcer: No History Surgical Site Infection Following: None - Disposition Have Diagnosis and Disposition been Completed?: Yes Diagnosis: Anxiety Disposition: HOME/ ROUTINE Disposition Time: 05:30 Patient Plan: Discharge Patient Problems: Current Active Problems Problem Status Onset Anxiety Acute Condition: GOOD Discharge Instructions (ExitCare): Anxiety (ED) Additional Instructions: PLEASE RETURN TO THE EMERGENCY DEPARTMENT FOR NEW OR WORSENING SYMPTOMS. RETURN RIGHT AWAY IF YOU CANNOT FOLLOW UP WITH YOUR PRIMARY CARE DOCTOR, CLINIC, OR SPECIALIST IN 1-2 DAYS. Referrals: Yogi Bailey MD [Family Provider] - Follow up with primary
[2017-01-27 05:21] VITALS: BP 123/95; PULSE 79; RESP 18; O2SAT 96
== END 2017-01-27 05:51 | disposition home or self-care (01) ==
LOC: ED 04:07
DX: F41.9 Anxiety disorder, unspecified (principal); I10 Essential (primary) hypertension

== ENCOUNTER 2017-07-31 14:49 | Emergency (ER) | payer MEDICARE, OTHER ==
[2017-07-31 15:51] VITALS: BMI 17.6
[2017-07-31 15:56] VITALS: TEMP 97.8
[2017-07-31] MEDS ORDERED: Iohexol 240 (50 ml) ONE (16:39)
[2017-07-31 16:57] LABS: BASO # 0.03 K/mm3 (0.0-2.0); BASO % 0.5 % (0.0-3.0); EOS % 0.3 % (1.5-5.0); GRAN # 4.46 (1.4-6.5); GRAN % 71.7 % (50.0-68.0); HEMOGLOBIN 13.2 g/dL (12.0-16.0); LYMPH # 1.2 (1.2-3.4); MEAN CELL VOLUME 94.9 fl (80.0-105.0); MEAN CORPUSCULAR HGB CONC 33.8 g/dl (31.0-37.0); MONO # 0.5 (0.1-0.6); MONO % 8.5 % (1.0-6.0); RBC 4.12 10^6/uL (3.5-6.1); RED CELL DISTRIBUTION WIDTH 12.8 % (11.5-14.5); WHITE BLOOD COUNT 6.2 10^3/ul (4.5-11.0)
[2017-07-31 17:04] LABS: ALB/GLOB RATIO 1.1 (1.1-1.8); ALT/SGPT 21 U/L (7-56); AMYLASE 72 U/L (35-125); AST/SGOT 21 U/L (14-36); BLOOD UREA NITROGEN 15 mg/dL (7-21); CALCIUM 9.6 mg/dL (8.4-10.5); GFR AFRICAN-AMERICAN > 60; GFR NON-AFRICAN AMERICAN > 60; LIPASE 49 U/L (23-300)
[2017-07-31 17:09] LABS: INR 1.13 (0.93-1.08); PARTIAL THROMBOPLASTIN TIME 28.9 Seconds (25.1-36.5); PROTHROMBIN TIME 12.9 SECONDS (9.4-12.5)
[2017-07-31 17:14] LABS: TROPONIN I < 0.01 ng/mL
[2017-07-31 17:48] LABS: URINE APPEARANCE CLEAR (CLEAR); URINE BILIRUBIN NEGATIVE (NEGATIVE); URINE BLOOD TRACE-INTACT (NEGATIVE); URINE COLOR YELLOW (YELLOW); URINE GLUCOSE (UA) NEGATIVE (NEGATIVE); URINE LEUKOCYTE ESTERASE NEGATIVE Leu/uL (NEGATIVE); URINE NITRATE NEGATIVE (NEGATIVE); URINE PROTEIN NEGATIVE mg/dL (<30 mg/dL); URINE UROBILINOGEN 0.2 E.U./dL (<1 E.U./dL)
[2017-07-31 17:55] LABS: URINE RBC NEGATIVE /hpf (0-2); URINE WBC NEGATIVE /hpf (0-6)
[2017-07-31 18:10] VITALS: O2SAT 99
--- NOTE | 2017-07-31 18:13 | ED PDOC ---
Arrival/HPI - General Chief Complaint: Abdominal Pain Time Seen by Provider: 07/31/17 16:25 Historian: Patient - History of Present Illness Narrative History of Present Illness (Text): 07/31/17 18:09 72yo female with PMHx of anxiety present with one and half month history of epigastric pain with associated nausea. States pain is usually worse 2hours postprandial. States she was seen by her PMD and was given Zantac, Prevacid and now Protonix for the pain. States she couldn't tolerate the Zantac and Prevacid and she started the Protonix, but thinks is not working and don't want to take it any more. States she have appointment with a GI on the of this month. She states she have never had EGD or Colonoscopy. States she had a loose BM once today, but not diarrhea. Denies constipation, fever, chills, urinary symptoms, chest pain, tearing/ripping upper back pain, SOB, diaphoresis, sick contact, travel, any other complaint Past Medical History - Provider Review Nursing Documentation Reviewed: Yes - Infectious Disease Hx of Infectious Diseases: None - Cardiac Hx Cardiac Disorders: No - Pulmonary Hx Pneumonia: Yes - Neurological Hx Neurological Disorder: No - HEENT Hx Glaucoma: Yes - Renal Hx Renal Disorder: No - Endocrine/Metabolic Hx Endocrine Disorders: No - Hematological/Oncological Hx Blood Disorders: No - Integumentary Hx Dermatological Disorder: No (eyeglasses) - Musculoskeletal/Rheumatological Hx Falls: No Other/Comment: neck pain - Gastrointestinal Hx Gastritis: Yes Other/Comment: "weak stomach" pt stated has to be carreful what she eats - Genitourinary/Gynecological Hx Genitourinary Disorders: No - Psychiatric Hx Anxiety: Yes Hx Depression: No Hx Emotional Abuse: No Hx Physical Abuse: No Hx Substance Use: No - Surgical History Other/Comment: breast cyst/tubal ligation - Anesthesia Hx Anesthesia: Yes - Suicidal Assessment Feels Threatened In Home Enviroment: No Family/Social History - Physician Review Nursing Documentation Reviewed: Yes Family/Social History: Unknown Family HX Smoking Status: Never Smoked Hx Alcohol Use: No Hx Substance Use: No Hx Substance Use Treatment: No Allergies/Home Meds Allergies/Adverse Reactions: Allergies Penicillins Allergy (Verified 01/27/17 04:15) RASH Home Medications: Home Meds Medication Instructions Recorded Confirmed ALPRAZolam [Xanax] 0.25 mg PO TID 01/09/17 07/31/17 Bimatoprost [Lumigan] 1 drop EACHEYE DAILY 01/27/17 07/31/17 Pantoprazole Sodium [Protonix] 1 tab PO DAILY 07/31/17 07/31/17 Review of Systems - Physician Review All systems were reviewed & negative as marked: Yes - Review of Systems Constitutional: Normal Eyes: Normal ENT: Normal Respiratory: Normal Cardiovascular: Normal Gastrointestinal: Abdominal Pain, Nausea. absent: Constipation, Diarrhea, Vomiting, Hematochezia, Hematemesis Genitourinary Female: Normal Musculoskeletal: Normal Skin: Normal Neurological: Normal Endocrine: Normal Hemo/Lymphatic: Normal Psychiatric: Normal Physical Exam Vital Signs Reviewed: Yes Vital Signs Temp Pulse Resp BP Pulse Ox 07/31/17 20:15 84 17 137/78 99 07/31/17 18:56 90 16 158/72 H 99 07/31/17 18:00 86 20 154/89 H 99 07/31/17 15:56 97.8 F 104 H 18 166/81 H 98 Temperature: Afebrile Blood Pressure: Normal Pulse: Regular Respiratory Rate: Normal Appearance: Positive for: Well-Appearing, Non-Toxic, Comfortable Pain Distress: None Mental Status: Positive for: Alert and Oriented X 3 - Systems Exam Head: Present: Atraumatic, Normocephalic Pupils: Present: PERRL Extroacular Muscles: Present: EOMI Conjunctiva: Present: Normal Mouth: Present: Moist Mucous Membranes Neck: Present: Normal Range of Motion Respiratory/Chest: Present: Clear to Auscultation, Good Air Exchange. No: Respiratory Distress, Accessory Muscle Use Cardiovascular: Present: Regular Rate and Rhythm, Normal S1, S2. No: Murmurs Abdomen: Present: Tenderness (Epigastric tenderness), Normal Bowel Sounds, Other (Soft). No: Distention, Peritoneal Signs, Rebound, Guarding, McBurney's Point Tender, Rovsing's Sign Present Back: Present: Normal Inspection Upper Extremity: Present: Normal Inspection. No: Cyanosis, Edema Lower Extremity: Present: Normal Inspection. No: Edema Neurological: Present: GCS=15, CN II-XII Intact, Speech Normal Skin: Present: Warm, Dry, Normal Color. No: Rashes Psychiatric: Present: Alert, Oriented x 3, Normal Insight, Normal Concentration Medical Decision Making ED Course and Treatment: 08/02/17 23:58 PT presented for stated history. She was not in any distress in Emergency department . She was noted tolerating food and fluid in Emergency department Lab was unremarkable Abdominal/Pelvic CT - IMPRESSION: 1. No definite acute intraabdominal abnormality. 2. Right cardiophrenic angle lesion, nonspecific. Suggest followup to ensure stability. 3. Incidental/non-acute findings are described above. Case was DW Dr. Hutson and he recommends that patient be DC home to f/u with him for outpt work up. PT is stable and was DC home. - Lab Interpretations Microbiology Results: Microbiology Results 07/31/17 17:40 Blood-Venous Blood Culture - Preliminary NO GROWTH AFTER 48 HOURS 07/31/17 17:10 Blood-Venous Blood Culture - Preliminary NO GROWTH AFTER 48 HOURS 07/31/17 17:20 Urine Urine Culture - Final No Growth (<1,000 CFU/ML) Lab Results: 07/31/17 16:45 07/31/17 16:45 Lab Results 07/31/17 17:20: Urine Color Yellow, Urine Appearance Clear, Urine pH 6.0, Ur Specific [place] <= 1.005, Urine Protein Negative, Urine Glucose (UA) Negative, Urine Ketones Negative, Urine Blood Trace-intact H, Urine Nitrate Negative, Urine Bilirubin Negative, Urine Urobilinogen 0.2, Ur Leukocyte Esterase Negative , Urine RBC Negative, Urine WBC Negative 07/31/17 16:45: Sodium 140, Potassium 3.9, Chloride 101, Carbon Dioxide 29, Anion Gap 13, BUN 15, Creatinine 0.7, Est GFR ( Amer) > 60, Est GFR (Non- Af Amer) > 60, Random Glucose 218 H, Calcium 9.6, Total Bilirubin 0.6, AST 21, ALT 21, Alkaline Phosphatase 67, Lactate Dehydrogenase 310 L, Total Creatine Kinase 46, Troponin I < 0.01, Total Protein 7.6, Albumin 4.0, Globulin 3.6, Albumin/Globulin Ratio 1.1, Amylase 72, Lipase 49 07/31/17 16:45: PT 12.9 H, INR 1.13 H, APTT 28.9 07/31/17 16:45: WBC 6.2, RBC 4.12, Hgb 13.2, Hct 39.1, MCV 94.9, MCH 32.0, MCHC 33.8, RDW 12.8, Plt Count 136, MPV 10.0, Gran % 71.7 H, Lymph % (Auto) 19.0 L, [place] % (Auto) 8.5 H, Eos % (Auto) 0.3 L, Baso % (Auto) 0.5, Gran # 4.46, Lymph # 1.2, [place] # 0.5, Eos # 0.0, Baso # 0.03 - RAD Interpretation Radiology Orders: 07/31/17 16:25 ABD & PELVIS PO CONTRAST ONLY [CT] Stat - Medication Orders Current Medication Orders: Discontinued Medications Famotidine (Pepcid) 20 mg IVP STAT STA Stop: 07/31/17 20:19 Last Admin: 07/31/17 20:33 Dose: 20 mg IVP Administration Document 07/31/17 20:33 RD (Rec: 07/31/17 20:33 RD [id number]) Charges for Administration # of IVP Administrations 1 Disposition/Present on Arrival - Present on Arrival Any Indicators Present on Arrival: No History of DVT/PE: No History of Uncontrolled Diabetes: No Urinary Catheter: No History of Decub. 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
[2017-07-31] MEDS ORDERED: Iohexol 350 MG/100 ML VIAL ONE (19:15)
--- NOTE | 2017-07-31 20:28 | CT ---
EXAM: CT Abdomen and Pelvis Without Intravenous Contrast CLINICAL HISTORY: 72 years old, female; Pain; Abdominal pain; Acute TECHNIQUE: Axial computed tomography images of the abdomen and pelvis without intravenous contrast. All CT scans at this facility use one or more dose reduction techniques, viz.: automated exposure control; ma/kV adjustment per patient size (including targeted exams where dose is matched to indication; i.e. head); or iterative reconstruction technique. Coronal and sagittal reformatted images were created and reviewed. COMPARISON: No relevant prior studies available. FINDINGS: Limitations: Lack of intravenous contrast. Lower thorax: Mild peripheral atelectasis/scarring. 3.2 x 1.7 x 3.5 cm fluid density lesion within right cardiophrenic angle. ABDOMEN: Liver: Unremarkable. Gallbladder and bile ducts: No calcified stones. No ductal dilation. Pancreas: Unremarkable. No ductal dilation. Spleen: No splenomegaly. Adrenals: No mass. Kidneys and ureters: No renal calculi. No hydronephrosis. Stomach and bowel: No definite mural thickening. No obstruction. Appendix: Normal caliber. No inflammation. PELVIS: Bladder: Distended bladder. No stones. Reproductive: 1.1 x 0.9 x 1.4 cm calcification or calcified exophytic fibroid within pelvis. ABDOMEN and PELVIS: Intraperitoneal space: No significant fluid collection. No free air. 0.8 x 0.8 x 1.2 cm fat density lesion within gastrohepatic region, doubtful significance. Bones/joints: No acute fracture. Soft tissues: Unremarkable. Vasculature: Mild atherosclerotic disease. No aneurysm. Lymph nodes: No pathologically enlarged lymph nodes. IMPRESSION: 1. No definite acute intraabdominal abnormality. 2. Right cardiophrenic angle lesion, nonspecific. Suggest followup to ensure stability. 3. Incidental/non-acute findings are described above.
[2017-07-31 21:04] VITALS: BP 137/78; PULSE 84; RESP 17
--- NOTE | 2017-08-01 10:51 | CARD ---
APPROVED REPORT EKG Measurement Heart [id number] <Conclusion> Normal sinus rhythm Minimal voltage criteria for LVH, may be normal variant Borderline ECG
== END 2017-07-31 21:04 | disposition home or self-care (01) ==
LOC: ED 14:49
DX: R10.9 Unspecified abdominal pain (principal)
CPT/HCPCS: 74176; 80053; 81001; 82150; 82550; 83615; 83690; 84484; 85025; 85610; 85730; 87040; 87086; 93005; 96374; 99284; Q9966; Q9967

== ENCOUNTER 2017-09-05 11:00 | Day surgery (SDC) | payer MEDICARE ==
[2017-09-05 12:16] LABS: BASO # 0.01 K/mm3 (0.0-2.0); BASO % 0.2 % (0.0-3.0); EOS % 0.5 % (1.5-5.0); GRAN # 2.77 (1.4-6.5); GRAN % 66.2 % (50.0-68.0); HEMOGLOBIN 13.5 g/dL (12.0-16.0); LYMPH % 24.2 % (22.0-35.0); MEAN CELL VOLUME 95.2 fl (80.0-105.0); MEAN CORPUSCULAR HEMOGLOBIN 32.1 pg (25.0-35.0); MEAN CORPUSCULAR HGB CONC 33.8 g/dl (31.0-37.0); MEAN PLATELET VOLUME 9.7 fl (7.0-11.0); MONO # 0.4 (0.1-0.6); MONO % 8.9 % (1.0-6.0); RBC 4.2 10^6/uL (3.5-6.1); RED CELL DISTRIBUTION WIDTH 12.7 % (11.5-14.5); WHITE BLOOD COUNT 4.2 10^3/ul (4.5-11.0)
[2017-09-05 12:26] LABS: INR 1.09 (0.93-1.08); PARTIAL THROMBOPLASTIN TIME 31.6 Seconds (25.1-36.5); PROTHROMBIN TIME 12.6 SECONDS (9.4-12.5)
[2017-09-05 12:31] LABS: ALB/GLOB RATIO 1.1 (1.1-1.8); ALBUMIN 4.3 g/dL (3.0-4.8); ALT/SGPT 29 U/L (7-56); AMYLASE 85 U/L (35-125); AST/SGOT 25 U/L (14-36); BLOOD UREA NITROGEN 15 mg/dL (7-21); GAMMA GLUTAMYL TRANSPEPTIDASE 20 U/L (8-78); GFR AFRICAN-AMERICAN > 60; GFR NON-AFRICAN AMERICAN > 60; LIPASE 54 U/L (23-300)
[2017-09-05 12:34] VITALS: BMI 17.6
[2017-09-05] MEDS ORDERED: Propofol 10 mg/ml Inj (20 ML) ONE ×3 (13:19→13:38)
[2017-09-05] MEDS ORDERED: Lactated Ringer's 1,000 ML IV SCH (14:00)
[2017-09-05 16:17] VITALS: RESP 18; TEMP 98.2
[2017-09-05 16:36] VITALS: BP 137/61; PULSE 80; O2SAT 97
== END 2017-09-05 18:30 | disposition home or self-care (01) ==
LOC: ENDO 11:00
PROVIDERS: ATTEND Internal Medicine Gastroenterology
DX: K21.9 Gastro-esophageal reflux disease without esophagitis (principal); K86.2 Cyst of pancreas; K29.50 Unspecified chronic gastritis without bleeding; R10.13 Epigastric pain
CPT/HCPCS: 36415; 43239; 43259; 80053; 82150; 82977; 83690; 85025; 85610; 85730; 88305; 88312; 88342; J2001; J2175; J2704; J3010; J7040; J7120

== ENCOUNTER 2018-10-16 19:46 | Emergency (ER) | payer MEDICARE, OTHER ==
[2018-10-16 19:46] VITALS: BMI 18.3
[2018-10-16 20:04] VITALS: PULSE 95; TEMP 98.5
[2018-10-16 21:17] LABS: HEMOGLOBIN 13.8 g/dL (12.0-16.0); MEAN CELL VOLUME 95.8 fl (80.0-105.0); MEAN CORPUSCULAR HEMOGLOBIN 32.4 pg (25.0-35.0); MEAN CORPUSCULAR HGB CONC 33.8 g/dl (31.0-37.0); MEAN PLATELET VOLUME 9.6 fl (7.0-11.0); RBC 4.26 10^6/uL (3.5-6.1); RED CELL DISTRIBUTION WIDTH 12.3 % (11.5-14.5); WHITE BLOOD COUNT 8.6 10^3/uL (4.5-11.0)
[2018-10-16 21:26] LABS: ALB/GLOB RATIO 1.3 (1.1-1.8); ALBUMIN 4.5 g/dL (3.0-4.8); ALT/SGPT 25 U/L (7-56); AST/SGOT 34 U/L (14-36); BLOOD UREA NITROGEN 29 mg/dL (7-21); CALCIUM 9.8 mg/dL (8.4-10.5); GFR NON-AFRICAN AMERICAN > 60
--- NOTE | 2018-10-16 21:32 | ED PDOC ---
Arrival/HPI - General Chief Complaint: Anxiety Time Seen by Provider: 10/16/18 20:02 - History of Present Illness Narrative History of Present Illness (Text): 10/16/18 20:35 A 73 year old female, whose past medical history includes anxiety disorder and hypertension, presents to the emergency department complaining of having a panic attack earlier tonight. Patient reports she felt some palpitations and notes she takes xanax, also noting she is on norvasc which she started 2 weeks ago. Patient states she feels norvasc is provoking her symptom s and feels she needs different medication. Patient denies any drug use or alcohol abuse. Patient denies any suicidal ideation, homicidal ideation, chest pain, shortness of breath, or any other complaints. PMD: Dr. Hutson Time/Duration: 4-6 hours (earlier tonight), Other Symptom Onset: Sudden Symptom Course: Unchanged Activities at Onset: Light Context: Home Past Medical History - Provider Review Nursing Documentation Reviewed: Yes - Infectious Disease Hx of Infectious Diseases: None - Cardiac Hx Pacemaker: No - Pulmonary Hx Pneumonia: Yes - Neurological Hx Paralysis: No - HEENT Hx Glaucoma: Yes - Renal Hx Renal Disorder: No - Endocrine/Metabolic Hx Endocrine Disorders: No - Hematological/Oncological Hx Blood Transfusions: No - Integumentary Hx Dermatological Disorder: No (eyeglasses) - Musculoskeletal/Rheumatological Hx Musculoskeletal Disorders: Yes - Gastrointestinal Hx Gastritis: Yes Other/Comment: "weak stomach" pt stated has to be carreful what she eats - Genitourinary/Gynecological Hx Genitourinary Disorders: No - Psychiatric Hx Emotional Abuse: No Hx Physical Abuse: No Hx Substance Use: No - Surgical History Other/Comment: breast cyst/tubal ligation - Anesthesia Hx Anesthesia Reactions: No Hx Malignant Hyperthermia: No - Suicidal Assessment Feels Threatened In Home Enviroment: No Family/Social History - Physician Review Nursing Documentation Reviewed: Yes Family/Social History: No Known Family HX Smoking Status: Never Smoked Hx Alcohol Use: No Hx Substance Use: No Hx Substance Use Treatment: No Allergies/Home Meds Allergies/Adverse Reactions: Allergies Penicillins Allergy (Verified 10/16/18 19:52) RASH Home Medications: Home Meds Medication Instructions Recorded Confirmed ALPRAZolam [Xanax] 0.25 mg PO TID PRN 01/09/17 10/16/18 Bimatoprost [Lumigan] 1 drop EACHEYE DAILY 01/27/17 10/16/18 Pantoprazole Sodium [Protonix] 1 tab PO DAILY 07/31/17 10/16/18 Review of Systems - Review of Systems Respiratory: absent: SOB Cardiovascular: absent: Chest Pain Psychiatric: absent: Suicidal Ideation, Other (homicidal ideation) Physical Exam Vital Signs Reviewed: Yes Vital Signs Temp Pulse Resp BP Pulse Ox 10/16/18 20:03 98.5 F 95 H 18 150/77 100 Temperature: Afebrile Blood Pressure: Hypertensive Pulse: Regular Respiratory Rate: Normal - Systems Exam Head: Present: Atraumatic, Normocephalic Pupils: Present: PERRL Extroacular Muscles: Present: EOMI Conjunctiva: Present: Normal Mouth: Present: Moist Mucous Membranes Neck: Present: Normal Range of Motion Respiratory/Chest: Present: Clear to Auscultation, Good Air Exchange. No: Respiratory Distress, Accessory Muscle Use Cardiovascular: Present: Regular Rate and Rhythm, Normal S1, S2. No: Murmurs Abdomen: No: Tenderness, Distention, Peritoneal Signs Back: Present: Normal Inspection Upper Extremity: Present: Normal Inspection. No: Cyanosis, Edema Lower Extremity: Present: Normal Inspection. No: Edema Neurological: Present: GCS=15, CN II-XII Intact, Speech Normal Skin: Present: Warm, Dry, Normal Color. No: Rashes Psychiatric: Present: Alert, Oriented x 3, Normal Insight, Normal Concentration Medical Decision Making ED Course and Treatment: 10/16/18 20:37 Impression: 73 year old female presenting to the emergency room complaining of a panic attack from earlier tonight. Plan: -- EKG -- Labs -- Xanax -- Reassess and disposition Prior Visits: Notes and results from previous visits were reviewed. Progress Notes: 10/16/18 21:14 EKG: Ordered, reviewed, and independently interpreted the EKG. Rate : 100 BPM Rhythm : NSR Interpretation : No ST-T wave changes. 10/16/18 22:[address] Hutson, patient will be seen in his office tomorrow. - Lab Interpretations Lab Results: Total Bilirubin 0.4 mg/dL (0.2-1.3) 10/16/18 20:48 AST 34 U/L (14-36) 10/16/18 20:48 ALT 25 U/L (7-56) 10/16/18 20:48 Alkaline Phosphatase 69 U/L (38-126) 10/16/18 20:48 Total Protein 8.1 g/dL (5.8-8.3) 10/16/18 20:48 Albumin 4.5 g/dL (3.0-4.8) 10/16/18 20:48 Globulin 3.6 gm/dL 10/16/18 20:48 Albumin/Globulin Ratio 1.3 (1.1-1.8) 10/16/18 20:48 - Medication Orders Current Medication Orders: Discontinued Medications Alprazolam (Xanax) 0.25 mg PO ONCE ONE Stop: 10/16/18 20:32 Last Admin: 10/16/18 21:01 Dose: 0.25 mg - Scribe Statement The provider has reviewed the documentation as recorded by the Scribe Disposition/Present on Arrival - Present on Arrival Any Indicators Present on Arrival: No History of DVT/PE: No History of Uncontrolled Diabetes: No Urinary Catheter: No History of Decub. Ulcer: No History Surgical Site Infection Following: None - Disposition Have Diagnosis and Disposition been Completed?: Yes Diagnosis: Anxiety, HTN (hypertension) Disposition: HOME/ ROUTINE Disposition Time: 22:11 Patient Plan: Discharge Patient Problems: Current Active Problems Problem Status Onset Anxiety Acute HTN (hypertension) Acute Condition: STABLE Discharge Instructions (ExitCare): Anxiety, Adult (DC) Additional Instructions: Continue your current medication/May increase Xanax to 2-3 times daily/follow up with Dr.Padkowsky villalobos Forms: [employer] (Swazi)
[2018-10-16 21:37] LABS: TROPONIN I < 0.01 ng/mL
[2018-10-16 21:44] VITALS: BP 125/65; RESP 17; O2SAT 97
--- NOTE | 2018-10-17 22:36 | CARD ---
APPROVED REPORT Date of service: 10/16/2018 EKG Measurement Heart [id number] <Conclusion> Poor data quality, interpretation may be adversely affected Normal sinus rhythm Biatrial enlargement Cannot rule out Anterior infarct, age undetermined Abnormal ECG
== END 2018-10-16 22:45 | disposition home or self-care (01) ==
LOC: ED 19:46
DX: F41.9 Anxiety disorder, unspecified (principal); I10 Essential (primary) hypertension